=== PATIENT | male | born 1995 | race Two or more races ===

== ENCOUNTER 2020-11-13 19:37 | Inpatient (IN) | payer MEDICAID, OTHER ==
[~2020-11-13] VITALS: Ht 175.3 cm; Wt 69.9 kg
[2020-11-13] MEDS ORDERED: DiphenhydrAMINE HCL 50 MG/ML VIAL IM ONE (22:00)
[2020-11-13] MEDS ORDERED: HALOPERIDOL LACTATE 5 MG/ML VIAL IM ONE (22:00)
[2020-11-13] MEDS ORDERED: LORazepam 2 MG/ML VIAL IM ONE (22:00)
[2020-11-13 22:53] LABS: AMPHET/METH SCREEN,URINE NEGATIVE (NEGATIVE); APPEARANCE,URINE CLEAR (CLEAR); BARBITURATE SCREEN, URINE NEGATIVE (NEGATIVE); BENZODIAZEPINES SCREEN,URINE NEGATIVE (NEGATIVE); BILIRUBIN,URINE NEGATIVE (NEGATIVE); CANNABINOID SCREEN,URINE POSITIVE (NEGATIVE); COCAINE SCREEN,URINE NEGATIVE (NEGATIVE); GLUCOSE, URINE (UA) NEGATIVE (NEGATIVE); KETONES,URINE NEGATIVE (NEGATIVE); LEUKOCYTE ESTERASE ,URINE NEGATIVE (NEGATIVE); METHADONE SCREEN, URINE NEGATIVE (NEGATIVE); NITRATE,URINE NEGATIVE (NEGATIVE); OCCULT BLOOD,URINE NEGATIVE (NEGATIVE); OPIATE SCREEN,URINE NEGATIVE (NEGATIVE); PHENCYCLIDINE SCREEN,URINE NEGATIVE (NEGATIVE); PROTEIN,URINE NEGATIVE (NEGATIVE); UROBILINOGEN,URINE 0.2 mg/dL (<=1.0)
[2020-11-13 23:06] LABS: COVID AG,FIA SOURCE NASOPHARYNGEAL
[2020-11-13 23:17] LABS: BASOPHILS % (AUTO) 0.6 % (0.0-2.0); HEMATOCRIT 41.2 % (41-53); HEMOGLOBIN 13.9 g/dL (13.5-17.5); LYMPHOCYTES # (AUTO) 2.8 K/uL (1.0-4.8); LYMPHOCYTES % (AUTO) 38.4 % (22.0-44.0); MEAN CORPUSCULAR HGB CONC 33.7 G/dL (31.0-37.0); MEAN CORPUSCULAR VOLUME 92 fL (80-100); MONOCYTES # (AUTO) 0.6 K/uL (0.1-1.0); MONOCYTES % (AUTO) 7.8 % (2.0-9.0); NEUTROPHILS # (AUTO) 3.7 K/uL (1.8-7.7); NEUTROPHILS % (AUTO) 50.2 % (40.0-70.0); PLATELET COUNT (AUTO) 352 K/uL (150-450); RED BLOOD CELL COUNT(AUTO) 4.47 MIL/uL (4.50-5.90)
[2020-11-13 23:27] LABS: ANION GAP 9 mmol/L (8-16); CALCIUM, TOTAL 7.6 mg/dL (8.8-10.5); CARBON DIOXIDE 27 mmol/L (22-29); CHLORIDE 108 mmol/L (98-107); CREATININE 0.82 mg/dL (0.60-1.30); GLOMERULAR FILTR. RATE CALC > 60 mL/min (>60); GLUCOSE,RANDOM 107 mg/dL (70-110); POTASSIUM 3.5 mmol/L (3.5-5.1); SODIUM SERUM 144 mmol/L (136-145); UREA NITROGEN, BLOOD 15 mg/dL (7-18)
[2020-11-13 23:32] LABS: ALANINE AMINOTRANSFERASE 169 U/L (12-78); ALBUMIN 3.6 g/dL (3.4-5.0); ALKALINE PHOSPHATASE 128 U/L (46-116); ASPARTATE AMINOTRANSFERASE 126 U/L (15-37); BILIRUBIN,TOTAL 0.2 mg/dL (0.1-1.0); TOTAL PROTEIN, SERUM 7.1 g/dL (6.4-8.2)
[2020-11-14 01:34] LABS: CHOL/HDL RATIO 4.1 (4.2-7.3); CHOLESTEROL 183 mg/dL (131-200); HDL CHOLESTEROL 45 mg/dL (40-60); LDL CHOL (CALC.) 60 mg/dL (0-130); TRIGLYCERIDES 389 mg/dL (15-150)
[2020-11-14 09:01] VITALS: BP 141/87
[2020-11-14] MEDS ORDERED: PNEUMOCOCCAL VACCINE POLYVALENT 0.5 ML VIAL [PPSV23] IM. ONE (11:15)
[2020-11-14] MEDS: LORazepam 2 MG TABLET PO PRN ×2 (12:22→20:33)
[2020-11-14] MEDS: THIAMINE 100 MG TABLET PO SCH (16:30)
[2020-11-14 16:34] VITALS: BP 126/89
[2020-11-14] MEDS ORDERED: BACITRACIN 28 GM OINTMENT TP PRN (16:45)
[2020-11-14] MEDS ORDERED: LOPERAMIDE HCL 2 MG CAPSULE PO PRN (16:45)
[2020-11-14] MEDS ORDERED: ONDANSETRON HCL 4 MG TABLET PO PRN (16:45)
[2020-11-14] MEDS ORDERED: DOCUSATE SODIUM 100 MG CAPSULE PO PRN (16:45)
[2020-11-14] MEDS ORDERED: ACETAMINOPHEN 325 MG TABLET PO PRN (16:45)
[2020-11-14] MEDS ORDERED: CloNIDine HCL 0.1 MG TABLET PO PRN (16:45)
[2020-11-14] MEDS ORDERED: IBUPROFEN 600 MG TABLET PO PRN (16:45)
[2020-11-14] MEDS ORDERED: MAGNESIUM HYDROXIDE SUSPENSION 30 ML UDCUP PO PRN (16:45)
[2020-11-14] MEDS ORDERED: BENZOCAINE/MENTHOL LOZENGE PO PRN (16:45)
[2020-11-14] MEDS ORDERED: PETROLATUM,WHITE 28 GM JELLY TP PRN (16:45)
[2020-11-14] MEDS ORDERED: OMEPRAZOLE 20 MG CAPSULE PO PRN (16:45)
[2020-11-14] MEDS ORDERED: MAG HYDROX/AL HYDROX/SIMETH ES 30 ML SUSPENSION UDCUP PO PRN (16:45)
[2020-11-14] MEDS ORDERED: ALBUTEROL SULFATE HFA 90 MCG/PUFF 8 GM INHALER IH PRN (16:45)
[2020-11-14 16:48] VITALS: BP 121/77
[2020-11-15] MEDS: ZOLPIDEM TARTRATE 10 MG TABLET PO PRN ×2 (00:48→20:42)
[2020-11-15] MEDS: MULTIVITAMINS WITH MINERALS, THERAPEUTIC TABLET PO SCH (09:21)
[2020-11-15] MEDS: THIAMINE 100 MG TABLET PO SCH ×2 (09:21→15:57)
[2020-11-15] MEDS: FOLIC ACID 1 MG TABLET PO SCH (09:21)
[2020-11-15] MEDS: LORazepam 2 MG TABLET PO PRN ×2 (09:22→14:12)
[2020-11-15 09:44] VITALS: BP 141/95
[2020-11-15] MEDS: NICOTINE 21 MG/24 HOUR PATCH TD SCH (13:10)
[2020-11-15] MEDS: HALOPERIDOL 5 MG TABLET PO PRN (15:57)
[2020-11-15 16:00] VITALS: BP 139/97
[2020-11-15 18:00] VITALS: BP 145/82
[2020-11-16] MEDS: MULTIVITAMINS WITH MINERALS, THERAPEUTIC TABLET PO SCH (08:15)
[2020-11-16] MEDS: FOLIC ACID 1 MG TABLET PO SCH (08:15)
[2020-11-16] MEDS: THIAMINE 100 MG TABLET PO SCH ×2 (08:16→16:23)
[2020-11-16] MEDS: NICOTINE 21 MG/24 HOUR PATCH TD SCH (08:17)
[2020-11-16 08:53] VITALS: BP 123/78
[2020-11-16] MEDS: LORazepam 2 MG TABLET PO PRN ×2 (10:51→17:36)
[2020-11-16 17:19] VITALS: BP 142/90
[2020-11-17] MEDS: ZOLPIDEM TARTRATE 10 MG TABLET PO PRN ×2 (00:02→23:59)
[2020-11-17] MEDS: LORazepam 2 MG TABLET PO PRN ×3 (00:02→23:59)
[2020-11-17] MEDS: MULTIVITAMINS WITH MINERALS, THERAPEUTIC TABLET PO SCH (08:15)
[2020-11-17] MEDS: THIAMINE 100 MG TABLET PO SCH ×2 (08:16→16:24)
[2020-11-17] MEDS: CITALOPRAM HYDROBROMIDE 20 MG TABLET PO SCH (08:16)
[2020-11-17] MEDS: NICOTINE 21 MG/24 HOUR PATCH TD SCH (08:16)
[2020-11-17] MEDS: FOLIC ACID 1 MG TABLET PO SCH (08:16)
[2020-11-17 09:11] VITALS: BP 129/72
[2020-11-17] MEDS: HALOPERIDOL 5 MG TABLET PO PRN (09:26)
[2020-11-17 16:53] VITALS: BP 141/98
[2020-11-18] MEDS: NICOTINE 21 MG/24 HOUR PATCH TD SCH (08:59)
[2020-11-18] MEDS: CITALOPRAM HYDROBROMIDE 20 MG TABLET PO SCH (08:59)
[2020-11-18] MEDS: FOLIC ACID 1 MG TABLET PO SCH (08:59)
[2020-11-18] MEDS: THIAMINE 100 MG TABLET PO SCH ×2 (08:59→16:33)
[2020-11-18] MEDS: MULTIVITAMINS WITH MINERALS, THERAPEUTIC TABLET PO SCH (08:59)
[2020-11-18 09:43] VITALS: BP 109/71
[2020-11-18] MEDS: LORazepam 2 MG TABLET PO PRN ×2 (12:11→18:42)
[2020-11-18 17:00] VITALS: BP 157/87
[2020-11-19 08:00] VITALS: BP 127/69
[2020-11-19 08:47] LABS: COVID AG,FIA SOURCE NASOPHARYNGEAL
[2020-11-19] MEDS: NICOTINE 21 MG/24 HOUR PATCH TD SCH (09:00)
[2020-11-19] MEDS: THIAMINE 100 MG TABLET PO SCH ×2 (09:06→17:37)
[2020-11-19] MEDS: MULTIVITAMINS WITH MINERALS, THERAPEUTIC TABLET PO SCH (09:06)
[2020-11-19] MEDS: FOLIC ACID 1 MG TABLET PO SCH (09:06)
[2020-11-19] MEDS: CITALOPRAM HYDROBROMIDE 20 MG TABLET PO SCH (09:06)
[2020-11-19] MEDS ORDERED: HALOPERIDOL LACTATE 5 MG/ML VIAL IM ONE (09:15)
[2020-11-19] MEDS ORDERED: DiphenhydrAMINE HCL 50 MG/ML VIAL IM ONE (09:15)
[2020-11-19] MEDS ORDERED: LORazepam 2 MG/ML VIAL IM ONE (09:15)
[2020-11-19 17:37] VITALS: BP 126/78
[2020-11-19] MEDS: LORazepam 2 MG TABLET PO PRN (17:37)
[2020-11-19] MEDS: OLANZapine 10 MG TABLET PO SCH (21:15)
[2020-11-20] MEDS: LORazepam 2 MG TABLET PO PRN ×2 (07:35→16:12)
[2020-11-20] MEDS: HALOPERIDOL 5 MG TABLET PO PRN ×2 (07:35→16:12)
[2020-11-20] MEDS: THIAMINE 100 MG TABLET PO SCH ×2 (07:35→16:12)
[2020-11-20] MEDS: DIVALPROEX SODIUM 500 MG DR TABLET PO SCH ×2 (07:35→16:12)
[2020-11-20] MEDS: MULTIVITAMINS WITH MINERALS, THERAPEUTIC TABLET PO SCH (07:36)
[2020-11-20] MEDS: CITALOPRAM HYDROBROMIDE 20 MG TABLET PO SCH (07:36)
[2020-11-20] MEDS: NICOTINE 21 MG/24 HOUR PATCH TD SCH (07:36)
[2020-11-20] MEDS: FOLIC ACID 1 MG TABLET PO SCH (07:38)
[2020-11-20 08:07] VITALS: BP 145/86
[2020-11-20] MEDS: OLANZapine 10 MG TABLET PO SCH (21:13)
[2020-11-20] MEDS: ZOLPIDEM TARTRATE 10 MG TABLET PO PRN (21:14)
[2020-11-21] MEDS: LORazepam 2 MG TABLET PO PRN ×2 (08:14→16:19)
[2020-11-21] MEDS: HALOPERIDOL 5 MG TABLET PO PRN ×2 (08:14→16:19)
[2020-11-21] MEDS: CITALOPRAM HYDROBROMIDE 20 MG TABLET PO SCH (08:14)
[2020-11-21] MEDS: THIAMINE 100 MG TABLET PO SCH ×2 (08:14→16:19)
[2020-11-21] MEDS: DIVALPROEX SODIUM 500 MG DR TABLET PO SCH ×2 (08:14→16:19)
[2020-11-21 08:15] VITALS: BP 123/59
[2020-11-21] MEDS: MULTIVITAMINS WITH MINERALS, THERAPEUTIC TABLET PO SCH (08:15)
[2020-11-21] MEDS: FOLIC ACID 1 MG TABLET PO SCH (08:15)
[2020-11-21] MEDS: NICOTINE 21 MG/24 HOUR PATCH TD SCH (08:16)
[2020-11-21 16:55] VITALS: BP 125/85
[2020-11-21] MEDS: ZOLPIDEM TARTRATE 10 MG TABLET PO PRN (20:20)
[2020-11-21] MEDS: OLANZapine 10 MG TABLET PO SCH (20:21)
[2020-11-22 08:11] VITALS: BP 127/80
[2020-11-22] MEDS: CITALOPRAM HYDROBROMIDE 20 MG TABLET PO SCH (09:15)
[2020-11-22] MEDS: FOLIC ACID 1 MG TABLET PO SCH (09:15)
[2020-11-22] MEDS: MULTIVITAMINS WITH MINERALS, THERAPEUTIC TABLET PO SCH (09:15)
[2020-11-22] MEDS: NICOTINE 21 MG/24 HOUR PATCH TD SCH (09:15)
[2020-11-22] MEDS: LORazepam 2 MG TABLET PO PRN ×2 (09:15→16:22)
[2020-11-22] MEDS: THIAMINE 100 MG TABLET PO SCH ×2 (09:16→16:21)
[2020-11-22] MEDS: DIVALPROEX SODIUM 500 MG DR TABLET PO SCH ×2 (09:16→16:21)
[2020-11-22 16:00] VITALS: BP 148/73
[2020-11-22] MEDS: HALOPERIDOL 5 MG TABLET PO PRN (16:22)
[2020-11-22] MEDS ORDERED: HALOPERIDOL LACTATE 5 MG/ML VIAL ONE (17:40)
[2020-11-22] MEDS ORDERED: LORazepam 2 MG/ML VIAL ONE (17:40)
[2020-11-22] MEDS ORDERED: HALOPERIDOL LACTATE 5 MG/ML VIAL IM ONE (17:45)
[2020-11-22] MEDS ORDERED: LORazepam 2 MG/ML VIAL IM ONE (17:45)
[2020-11-22 18:35] VITALS: BP 142/78
[2020-11-22] MEDS: OLANZapine 10 MG TABLET PO SCH (19:54)
[2020-11-23] MEDS: ZOLPIDEM TARTRATE 10 MG TABLET PO PRN ×2 (02:20→20:22)
[2020-11-23 05:28] VITALS: BP 141/80
[2020-11-23 08:35] VITALS: BP 135/87
[2020-11-23] MEDS: CITALOPRAM HYDROBROMIDE 20 MG TABLET PO SCH (10:12)
[2020-11-23] MEDS: LORazepam 2 MG TABLET PO PRN ×2 (10:12→15:43)
[2020-11-23] MEDS: HALOPERIDOL 5 MG TABLET PO PRN ×2 (10:12→15:43)
[2020-11-23] MEDS: FOLIC ACID 1 MG TABLET PO SCH (10:12)
[2020-11-23] MEDS: THIAMINE 100 MG TABLET PO SCH ×2 (10:12→16:40)
[2020-11-23] MEDS: MULTIVITAMINS WITH MINERALS, THERAPEUTIC TABLET PO SCH (10:12)
[2020-11-23] MEDS: DIVALPROEX SODIUM 500 MG DR TABLET PO SCH ×2 (10:12→16:41)
[2020-11-23] MEDS: NICOTINE 21 MG/24 HOUR PATCH TD SCH (10:17)
[2020-11-23 16:25] VITALS: BP 120/70
[2020-11-23] MEDS: OLANZapine 10 MG TABLET PO SCH (20:22)
[2020-11-24] MEDS: HALOPERIDOL 5 MG TABLET PO PRN ×3 (00:50→20:03)
[2020-11-24] MEDS: LORazepam 2 MG TABLET PO PRN ×2 (00:50→15:30)
[2020-11-24 08:44] VITALS: BP 155/92
[2020-11-24] MEDS: MULTIVITAMINS WITH MINERALS, THERAPEUTIC TABLET PO SCH (09:12)
[2020-11-24] MEDS: THIAMINE 100 MG TABLET PO SCH ×2 (09:12→16:33)
[2020-11-24] MEDS: NICOTINE 21 MG/24 HOUR PATCH TD SCH (09:13)
[2020-11-24] MEDS: CITALOPRAM HYDROBROMIDE 20 MG TABLET PO SCH (09:13)
[2020-11-24] MEDS: DIVALPROEX SODIUM 500 MG DR TABLET PO SCH ×2 (09:13→16:33)
[2020-11-24] MEDS: FOLIC ACID 1 MG TABLET PO SCH (09:14)
[2020-11-24 16:20] VITALS: BP 141/76
[2020-11-24] MEDS: OLANZapine 10 MG TABLET PO SCH (20:03)
[2020-11-24] MEDS: ZOLPIDEM TARTRATE 10 MG TABLET PO PRN (20:03)
[2020-11-25] MEDS: LORazepam 1 MG TABLET PO PRN ×2 (07:43→16:18)
[2020-11-25] MEDS: HALOPERIDOL 5 MG TABLET PO PRN ×2 (07:43→16:18)
[2020-11-25] MEDS: CITALOPRAM HYDROBROMIDE 20 MG TABLET PO SCH (07:45)
[2020-11-25] MEDS: THIAMINE 100 MG TABLET PO SCH ×2 (07:45→16:18)
[2020-11-25] MEDS: FOLIC ACID 1 MG TABLET PO SCH (07:45)
[2020-11-25] MEDS: MULTIVITAMINS WITH MINERALS, THERAPEUTIC TABLET PO SCH (07:45)
[2020-11-25] MEDS: DIVALPROEX SODIUM 500 MG DR TABLET PO SCH ×2 (07:45→16:19)
[2020-11-25 08:04] VITALS: BP 131/88
[2020-11-25] MEDS: NICOTINE 21 MG/24 HOUR PATCH TD SCH (09:00)
[2020-11-25 16:42] VITALS: BP 134/76
[2020-11-25] MEDS: OLANZapine 7.5 MG TABLET PO SCH (20:17)
[2020-11-26 08:00] LABS: COVID AG,FIA SOURCE NASAL SWAB
[2020-11-26 08:04] VITALS: BP 155/87
[2020-11-26] MEDS: NICOTINE 21 MG/24 HOUR PATCH TD SCH (09:00)
[2020-11-26] MEDS: DIVALPROEX SODIUM 500 MG DR TABLET PO SCH ×2 (09:35→16:07)
[2020-11-26] MEDS: MULTIVITAMINS WITH MINERALS, THERAPEUTIC TABLET PO SCH (09:35)
[2020-11-26] MEDS: LORazepam 1 MG TABLET PO PRN ×2 (09:35→16:07)
[2020-11-26] MEDS: CITALOPRAM HYDROBROMIDE 20 MG TABLET PO SCH (09:36)
[2020-11-26] MEDS: HALOPERIDOL 5 MG TABLET PO PRN ×2 (09:36→16:07)
[2020-11-26] MEDS: FOLIC ACID 1 MG TABLET PO SCH (09:36)
[2020-11-26] MEDS: THIAMINE 100 MG TABLET PO SCH ×2 (09:36→16:07)
[2020-11-26 15:17] LABS: COVID AG,FIA SOURCE NASOPHARYNGEAL
[2020-11-26 16:43] VITALS: BP 141/76
[2020-11-26] MEDS: OLANZapine 7.5 MG TABLET PO SCH (20:12)
[2020-11-26] MEDS: ZOLPIDEM TARTRATE 10 MG TABLET PO PRN (20:12)
[2020-11-27 08:08] VITALS: BP 131/81
[2020-11-27] MEDS ORDERED: DIVA-112 PO (08:23)
[2020-11-27] MEDS ORDERED: CITA-144 PO (08:23)
[2020-11-27] MEDS ORDERED: OLAN7.5T22 PO (08:24)
[2020-11-27] MEDS: FOLIC ACID 1 MG TABLET PO SCH (08:41)
[2020-11-27] MEDS: MULTIVITAMINS WITH MINERALS, THERAPEUTIC TABLET PO SCH (08:41)
[2020-11-27] MEDS: CITALOPRAM HYDROBROMIDE 20 MG TABLET PO SCH (08:41)
[2020-11-27] MEDS: DIVALPROEX SODIUM 500 MG DR TABLET PO SCH ×2 (08:41→17:50)
[2020-11-27] MEDS: NICOTINE 21 MG/24 HOUR PATCH TD SCH (08:41)
[2020-11-27] MEDS: THIAMINE 100 MG TABLET PO SCH ×2 (08:41→16:30)
[2020-11-27] MEDS: HALOPERIDOL 5 MG TABLET PO PRN ×2 (08:45→16:30)
[2020-11-27] MEDS: LORazepam 1 MG TABLET PO PRN (08:45)
[2020-11-27 16:42] VITALS: BP 143/77
[2020-11-27] MEDS: OLANZapine 7.5 MG TABLET PO SCH (21:13)
[2020-11-27] MEDS: ZOLPIDEM TARTRATE 10 MG TABLET PO PRN (21:13)
[2020-11-28 08:39] VITALS: BP 151/86
[2020-11-28] MEDS: FOLIC ACID 1 MG TABLET PO SCH (08:39)
[2020-11-28] MEDS: CITALOPRAM HYDROBROMIDE 20 MG TABLET PO SCH (08:39)
[2020-11-28] MEDS: MULTIVITAMINS WITH MINERALS, THERAPEUTIC TABLET PO SCH (08:39)
[2020-11-28] MEDS: DIVALPROEX SODIUM 500 MG DR TABLET PO SCH (08:39)
[2020-11-28] MEDS: THIAMINE 100 MG TABLET PO SCH (08:40)
[2020-11-28] MEDS: NICOTINE 21 MG/24 HOUR PATCH TD SCH (08:56)
== END 2020-11-28 10:30 | disposition home or self-care (01) | DRG 750 ==
LOC: EMS 19:39 → 3EC 11-14 07:26
PROVIDERS: ADMIT Psychiatry & Neurology Psychiatry; ATTEND Psychiatry & Neurology Psychiatry
DX: F25.9 Schizoaffective disorder, unspecified (principal); R45.850 Homicidal ideations; R45.851 Suicidal ideations; F10.10 Alcohol abuse, uncomplicated; F32.9 Major depressive disorder, single episode, unspecified; F41.9 Anxiety disorder, unspecified; F12.90 Cannabis use, unspecified, uncomplicated; G47.00 Insomnia, unspecified; K59.00 Constipation, unspecified; Z20.822 Contact with and (suspected) exposure to COVID-19
CPT/HCPCS: 80053; 80061; 80164; 81003; 85025; 90732; 99291; G0480; J1200; J1630; J2060